=== PATIENT | female | born 1935 | race Caucasian/White ===

== ENCOUNTER → 2016-09-29 | Outpatient (CLI) | payer OTHER, MEDICARE ==
[~2016-09-29] MED LIST: ACET-1257 PO; ALUMSUS2 PO; CALC500C3 PO; CHOL4POW6 PO; CRFL PO; CRG25 PO; HYG25 PO; MULT-506 PO; PRT/40 PO; RAMI10CA PO
--- NOTE | 2016-09-29 15:18 | MAMMOGRAPHY REPORT ---
BILATERAL DIGITAL SCREENING MAMMOGRAM WITH CAD: 09/29/2016 CLINICAL HISTORY: Routine screening. Patient has no complaints. TECHNIQUE: Bilateral CC, MLO and repeat right MLO views were obtained. Current study was also evalua joe with a Computer Aided Detection (CAD) system. COMPARISON: Comparison is made to exams dated: 07/31/2015 mammogram, 07/26/2014 mammogram, 06/13/2013 ayesha mogram, 06/09/2012 mammogram, 06/04/2011 mammogram, and 06/02/2010 mammogram - [facility] ter. BREAST COMPOSITION: The tissue of both breasts is heterogeneously dense, which may obscure small mas ses. FINDINGS: A linear scar marker overlies the right breast. There are a few benign-appearing round milli rocalcifications in the breasts. No suspicious mass, architectural distortion or cluster of suspicio us microcalcifications is seen. IMPRESSION: ACR BI-RADS CATEGORY 1: NEGATIVE There is no mammographic evidence of malignancy. A 1 year screening mammogram is recommended. The pa tient will receive written notification of the results. Approximately 10% of breast cancers are not detected with mammography. A negative mammographic report should not delay biopsy if a clinically suggestive mass is present. Iesha Gillespie M.D. ay/:09/29/2016 12:19:41 [place] Machine Operator: Sierra Ramirez, [facility] letter sent: Normal 1/2 BI-RADS Code: ACR BI-RADS Category 1: Negative
== END | disposition home or self-care (01) ==
LOC: C.MAMM 11:06
PROVIDERS: ATTEND Internal Medicine
DX: Z12.31 Encounter for screening mammogram for malignant neoplasm of breast (principal); R92.0 Mammographic microcalcification found on diagnostic imaging of breast

== ENCOUNTER → 2016-10-08 | Outpatient (CLI) | payer OTHER, MEDICARE ==
--- NOTE | 2016-10-08 13:56 | DIAGNOSTIC IMAGING REPORT ---
EXTREMITY NONVASCULAR LIMITED CLINICAL HISTORY: 81 years-old Female presenting with ENLARGED LYMPH NODE IN GROIN AREA. TECHNIQUE: Real-time grayscale ultrasound imaging of the inguinal regions was performed. Color Doppler was also performed. COMPARISON: CT from 09/24/2013. FINDINGS: Benign-appearing lymph nodes seen in the bilateral inguinal regions. The largest lymph node is located in the left inguinal region measuring 1.9 cm in the short axis, maintaining normal morphology and fatty hilum. No evidence of a fluid collection or hernia. IMPRESSION: 1. Benign-appearing prominent left inguinal lymph node. Otherwise normal. Electronically signed by: Chaka Turner M.D. 10/08/2016 1:55 PM Dictated Date/Time: 10/08/2016 1:53 PM
== END | disposition home or self-care (01) ==
LOC: C.ULTR 13:20
PROVIDERS: ATTEND Dermatology
DX: R59.0 Localized enlarged lymph nodes (principal); Z85.820 Personal history of malignant melanoma of skin

== ENCOUNTER → 2017-03-28 | Outpatient (CLI) | payer OTHER, MEDICARE ==
[~2017-03-28] MED LIST changes: +PANT40TA2 PO; -PRT/40 PO
[2017-03-28 11:19] LABS: BASO % 0.6 %; BASO ABS # 0.03 K/uL (0-0.2); EOS % 0.8 %; EOS ABS # 0.04 K/uL (0-0.5); HEMOGLOBIN 14.4 g/dL (12.0-16.0); LYMPH % 34.9 %; LYMPH ABS # 1.72 K/uL (1.2-3.4); MEAN CELL VOLUME 88.8 fL (80-100); MEAN CORPUSCULAR HEMOGLOBIN 30.4 pg (25-34); MEAN CORPUSCULAR HGB CONC 34.3 g/dl (32-36); MEAN PLATELET VOLUME 8.9 fL (7.4-10.4); MONO % 13.2 %; MONO ABS # 0.65 K/uL (0.11-0.59); NEUT % 50.5 %; NEUT ABS # 2.49 K/uL (1.4-6.5); PLATELET COUNT 311 K/uL (130-400); RED CELL DISTRIBUTION WIDTH CV 12.7 % (11.5-14.5); RED CELL DISTRIBUTION WIDTH SD 41.3 fL (36.4-46.3); WHITE BLOOD COUNT 4.93 K/uL (4.8-10.8)
[2017-03-28 11:25] LABS: ALBUMIN 3.9 gm/dl (3.4-5.0); ALT/SGPT 20 U/L (12-78); AST/SGOT 18 U/L (15-37); BLOOD UREA NITROGEN 13 mg/dl (7-18); CALCIUM 9.1 mg/dl (8.5-10.1); CARBON DIOXIDE 33 mmol/L (21-32); CREATININE 0.69 mg/dl (0.60-1.20); GLUCOSE 108 mg/dl (70-99); POTASSIUM 3.4 mmol/L (3.5-5.1); SODIUM 129 mmol/L (136-145)
[2017-03-28 11:36] LABS: ALKALINE PHOSPHATASE 70 U/L (45-117); CHOLESTEROL 235 mg/dl (0-200); LDL CHOLESTEROL CALCULATED 126 mg/dl; TOTAL PROTEIN 7.5 gm/dl (6.4-8.2)
== END | disposition home or self-care (01) ==
LOC: C.LABBC 09:08
PROVIDERS: ATTEND Internal Medicine
DX: I10 Essential (primary) hypertension (principal); E78.5 Hyperlipidemia, unspecified; I70.1 Atherosclerosis of renal artery; R73.03 Prediabetes; R25.2 Cramp and spasm

== ENCOUNTER → 2017-04-07 | Outpatient (CLI) | payer OTHER, MEDICARE ==
--- NOTE | 2017-04-07 10:37 | DIAGNOSTIC IMAGING REPORT ---
CHEST 2 VIEWS ROUTINE CLINICAL HISTORY: Cough. COMPARISON STUDY: Chest radiograph December 11, 2015. FINDINGS: Incidental note is made of cholecystectomy clips. Lung volumes are normal. No pneumothorax or pleural effusion is noted. There is no evidence for pulmonary edema. Cardiomediastinal silhouette is unremarkable. IMPRESSION: No acute cardiopulmonary findings. Electronically signed by: Roberto Mcfarlane M.D. 04/07/2017 10:36 AM Dictated Date/Time: 04/07/2017 10:35 AM
[2017-04-07 14:10] LABS: BLOOD UREA NITROGEN 9 mg/dl (7-18); CALCIUM 9.2 mg/dl (8.5-10.1); CARBON DIOXIDE 32 mmol/L (21-32); CREATININE 0.63 mg/dl (0.60-1.20); GLUCOSE 96 mg/dl (70-99); POTASSIUM 3.7 mmol/L (3.5-5.1); SODIUM 134 mmol/L (136-145)
== END | disposition home or self-care (01) ==
LOC: C.RADBC 10:10
PROVIDERS: ATTEND Internal Medicine
DX: R05 Cough (principal)

== ENCOUNTER → 2017-06-20 | Outpatient (CLI) | payer OTHER, MEDICARE ==
[2017-06-20 13:25] LABS: BLOOD UREA NITROGEN 12 mg/dl (7-18); CALCIUM 9.8 mg/dl (8.5-10.1); CARBON DIOXIDE 33 mmol/L (21-32); CREATININE 0.71 mg/dl (0.60-1.20); GLUCOSE 108 mg/dl (70-99); POTASSIUM 3.8 mmol/L (3.5-5.1); SODIUM 132 mmol/L (136-145)
== END | disposition home or self-care (01) ==
LOC: C.LABBC 09:16
PROVIDERS: ATTEND Physician Assistant Medical
DX: I10 Essential (primary) hypertension (principal)

== ENCOUNTER → 2017-10-05 | Outpatient (CLI) | payer OTHER, MEDICARE ==
--- NOTE | 2017-10-05 13:50 | MAMMOGRAPHY REPORT ---
BILATERAL DIGITAL SCREENING MAMMOGRAM TOMOSYNTHESIS WITH CAD: 10/05/2017 CLINICAL HISTORY: Routine screening examination. TECHNIQUE: The study was acquired using full field digital technology and interpreted from soft copy. Breast tomosynthesis in addition to standard 2D mammography was performed. Current study was also ev aluated with a Computer Aided Detection (CAD) system. COMPARISON: Comparison is made to exams dated: 09/29/2016 mammogram, 07/31/2015 mammogram, 07/26/2014 mamm ogram, 06/13/2013 mammogram, 06/09/2012 mammogram, and 06/04/2011 mammogram - [facility] [address] er. BREAST COMPOSITION: The tissue of both breasts is heterogeneously dense, which may obscure small mass es. FINDINGS: There is a small, 3 mm triangular nodular asymmetry with possible associated architectural distortion in the lateral, posterior left breast best seen on the CC tomosynthesis slice 22/48, not d efinitely seen on the MLO view, for which additional spot compression tomosynthesis views and possibl e ultrasound are recommended. Linear scar markers overlie the right breast. There are a few scattered benign-appearing microcalcif ications. No other suspicious mass, architectural distortion or cluster of microcalcifications is see n. IMPRESSION: ACR BI-RADS CATEGORY 0: INCOMPLETE EVALUATION: NEED ADDITIONAL IMAGING EVALUATION The 3 mm triangular nodular asymmetry with possible associated architectural distortion in the latera l, posterior left breast needs additional evaluation. The patient will be called to schedule an appointment. Some breast cancers are not detected with mammography. A negative mammographic report should not ascencion y biopsy if a clinically suggestive mass is present. Iesha Gillespie M.D. ay/:10/05/2017 13:00:44 Director Visual: RT Prince(Kamilah)(M), [facility] letter sent: Addl Imaging 0 BI-RADS Code: ACR BI-RADS Category 0: Incomplete Evaluation: Need Additional Imaging Evaluation
== END | disposition home or self-care (01) ==
LOC: C.MAMM 11:08
PROVIDERS: ATTEND Internal Medicine
DX: Z12.31 Encounter for screening mammogram for malignant neoplasm of breast (principal); N64.89 Other specified disorders of breast

== ENCOUNTER → 2017-10-12 | Outpatient (CLI) | payer OTHER, MEDICARE ==
--- NOTE | 2017-10-12 13:37 | MAMMOGRAPHY REPORT ---
UNILATERAL LEFT DIGITAL DIAGNOSTIC MAMMOGRAM TOMOSYNTHESIS: 10/12/2017 CLINICAL HISTORY: Callback from screening mammogram for possible left breast architectural distortion and left breast asymmetry. History of BRCA gene mutation. TECHNIQUE: Breast tomosynthesis in addition to standard 2D mammography was performed. Spot compressi on left CC and MLO 2D and tomosynthesis images were obtained. COMPARISON: Comparison is made to exams dated: 10/05/2017 mammogram, 09/29/2016 mammogram, 07/31/2015 [facility] mogram, 07/26/2014 mammogram, 06/09/2012 mammogram, and 05/30/2009 mammogram - [facility]. BREAST COMPOSITION: The tissue of left breast is heterogeneously dense, which may obscure small walter s. FINDINGS: The previously described asymmetry with possible associated architectural distortion effaces on the a dditional spot compression views. Normal fibroglandular tissue is seen in this region, without evide nce of a mass, architectural distortion, or other suspicious mammographic abnormality. Findings are benign and compatible with normal fibroglandular tissue. IMPRESSION: ACR BI-RADS CATEGORY 2: BENIGN No persistent architectural distortion seen in the left breast on the additional views. Findings are benign and compatible with normal fibroglandular tissue. There is no mammographic evidence of malig frederick. A 1 year screening mammogram is recommended.(10/13/2018) The patient has been verbally notified of the results. Some breast cancers are not detected with mammography. A negative mammographic report should not ascencion y biopsy if a clinically suggestive mass is present. Bhakti Triana M.D. ah/:10/12/2017 08:51:13 Ict Programmer: RT Perez(R)(M), [facility] letter sent: Normal 1/2 BI-RADS Code: ACR BI-RADS Category 2: Benign
== END | disposition home or self-care (01) ==
LOC: C.MAMM 08:31
PROVIDERS: ATTEND Internal Medicine
DX: N64.89 Other specified disorders of breast (principal)